=== PATIENT | female | born 1940 ===

== ENCOUNTER 2020-01-24 11:45 | Inpatient (IN) | payer OTHER ==
[~2020-01-24] VITALS: Ht 152.4 cm; Wt 63.5 kg
[~2020-01-24 11:45] MED LIST: AVANDAMET 4 MG/1 TA1 PO; AVAPRO150 MG; COZAAR100 MG; COZAAR50 MG PO; GABAPENTIN100 M1; GEMFIBROZIL600 MG; GLIMEPIRIDE4 MG; GLYBURIDE5 MG NGT; JANUVIA100 MG; LANTUS100 U/ML; LIPITOR20 MG; LIPITOR20 MG PO; LOPRESSOR25 MG; METFORMIN HCL1000 MG; PLAVIX75 MG; ZESTRIL20 MG
[2020-01-24] MEDS ORDERED: GLIMEPIRIDE2 M1 PO (16:11)
[2020-01-24] MEDS ORDERED: JANUMET XR 1001 EACH PO (16:11)
[2020-01-24] MEDS ORDERED: KAPVAY0.1 MG PO (16:12)
[2020-02-02] MEDS ORDERED: BACTRIM 400-801 EACH PO (08:25)
[2020-02-02] MEDS ORDERED: ULTRACET PO (08:25)
[2020-02-02] MEDS ORDERED: INTESTINEX680 M1 PO (08:25)
[2020-02-03] MEDS ORDERED: BACTRIM DS TAB1 EACH PO (10:44)
[2020-02-03] MEDS ORDERED: ULTRACET PO (10:44)
[2020-02-03] MEDS ORDERED: LEVSIN/SL0.125 MG SL (10:44)
[2020-02-03] MEDS ORDERED: INTESTINEX680 M1 PO (10:44)
== END 2020-02-03 15:47 | disposition home or self-care (01) | DRG 349 ==
LOC: O/R 01-31 06:48 → SURG 01-31 06:48 → SURH 01-31 11:45 → SURG 01-31 15:35
PROVIDERS: ADMIT Surgery; ATTEND Surgery
PROC: 0DUR0JZ Supplement Anal Sphincter with Synthetic Substitute, Open Approach (ICD-10-PCS; 2020-01-31)
PROC: 0DBP7ZZ Excision of Rectum, Via Natural or Artificial Opening (ICD-10-PCS; principal; 2020-01-31 12:15)
DX: K62.3 Rectal prolapse (principal); R15.9 Full incontinence of feces; Z20.828 Contact with and (suspected) exposure to other viral communicable diseases